=== PATIENT | female | born 1955 | race Caucasian/White ===

== ENCOUNTER 2017-10-27 16:09 | Emergency (ER) | payer OTHER ==
[2017-10-27 16:18] VITALS: BP 138/88
[2017-10-27] MEDS ORDERED: Lidocaine 1%* 5 ML VIAL INJ ONE (16:58)
--- NOTE | 2017-10-27 16:59 | UC ---
Laceration HPI - HPI Summary HPI Summary: This is scribe Chely Hay documenting for attending Ebony Chand MD. This patient is a 62 year old F presenting to [facility] [address] with a chief complaint of laceration on left third finger with an embroidery needle that occurred ROUSTABOUT CREW. The patient rates the pain 4/10 in severity. Symptoms aggravated by nothing. Symptoms alleviated by nothing. Pt reports that she was sewing with a machine, and the needle went all the through the finger. Pt is dominant R handed. Tdapp UTD. Not immunocompromised. No analgesia taken. RHD. Medications reviewed this visit. - History Of Current Complaint Chief Complaint: UCLaceration Stated Complaint: PUNCTURE WOUND Time Seen by Provider: 10/27/17 16:28 Hx Obtained From: Patient Hx Last Menstrual Period: na Laceration Location: Finger Mechanism Of Injury: Sharp Trauma Onset/Duration: Sudden Onset, Lasting Hours, Still Present Severity: Moderate Pain Intensity: 4 Pain Scale Used: 0-10 Numeric Aggravating Factors: Nothing Related History: Dominant Hand Right - Allergies/Home Medications Allergies/Adverse Reactions: Allergies Allergy/AdvReac Type Severity Reaction Status Date / Time SEASONAL HAYFEVER Allergy SNEEZE, Uncoded 10/27/17 16:20 ITCHY EYES PMH/Surg Hx/FS Hx/Imm Hx Previously Healthy: Yes Endocrine History: Other Other Endocrine History: Negative diabetes Cardiovascular History: Other Other Cardiovascular History: Negative HTN - Surgical History Surgical History: Yes Surgery Procedure, Year, and Place: 1973 PILIONIDAL SINUS SURGERY, [facility] - Family History Known Family History: Positive: Other - Negative breast CA - Social History Occupation: Employed Full-time Lives: Alone Alcohol Use: Occasionally Alcohol Amount: 1 EVERY OTHER WEEK Substance Use Type: None Smoking Status (MU): Never Smoked Tobacco Review of Systems Skin: Other - Positive laceration on left third finger Cardiovascular: Other - Negative CP All Other Systems Reviewed And Are Negative: Yes Physical Exam - Summary Physical Exam Summary: Vital Signs Reviewed: Yes A+Ox3, no distress Eyes: Conjunctiva Clear ENT: Hearing grossly normal neck: supple Respiratory: Positive: No respiratory distress, No accessory muscle use Cardiovascular: skin color reflect adequate perfusion Musculoskeletal Exam: CHANDLER x 4 without difficulty Neurological: Positive: Alert, ambulatory without difficulty Psychological: Positive: Normal Response To Family Skin: Positive: laceration to left middle finger, dorsal aspect, distal phalyns , no nail involvement 1cm no rash, no ecchymosis Triage Information Reviewed: Yes Vital Signs: Initial Vital Signs Temp 99.3 F 10/27/17 16:14 Pulse 75 10/27/17 16:14 Resp 18 10/27/17 16:14 BP 138/88 10/27/17 16:14 Pulse Ox 100 10/27/17 16:14 Laceration Repair - Laceration Repair 1 Procedure Summary: verbal permission to treat time out completed with RN at bedside pt prepped in usual, sterile fashion copious irrigation with sterile saline under pressure pt tolerated well wound with good approximation reviewed with pt wound care s/s infection return precautions Description: Linear Laceration Size After Repair: Length (cm) - 1.5 Modified For Repair: No Type Injection: Local Anesthesia Used: 1.0% Lido - 1.5 mL Cleansing Completed Via Routine Prep: Yes Closure Material: Sutures - 2 Closure Method: Single Layer - 2 sutures, simple interrupted Suture Of: Skin Suture Type: Nylon - 5-0 Laceration Course/Dx - Course/Dx Course Of Treatment: laceration - suture with good approx. reviewed wound care. s/s infection. return precautions. suture removal. motrin/apap - Differential Dx - Laceration/Wound Provider Diagnoses: left middle finger laceration Discharge - Sign-Out/Discharge Documenting (check all that apply): Patient Departure - Discharge home - Discharge Plan Condition: Stable Disposition: HOME Patient Education Materials: Finger Laceration (ED) Referrals: Ada Martinez MD [Primary Care Provider] - Additional Instructions: - your stitches should come out in 8-10 days - you can return here, go to your Doctor or any urgent care center - okay to alternate ibuprofin (advil, motrin) and tylenol every 3hours as needed for pain -Anticipate increased discomfort over the next several hours as the numbing medication wears off -Keep your wound clean and dry - no soaking for 24 hours. Then, okay for wound to get wet - pat dry, don't rub -apply a thin layer of antibiotic ointment (neosporin, polysporin) 2-3 times a day - keep your wound clean - monitor for signs of infection - reddness, red streaking, odor, green drainage - Contact your doctor or return here with questions or concerns - Billing Disposition and Condition Condition: STABLE Disposition: Home
== END 2017-10-27 17:30 | disposition home or self-care (01) ==
LOC: UCEAST 16:09
DX: S61.213A Laceration without foreign body of left middle finger without damage to nail, initial encounter (principal); Z91.09 Other allergy status, other than to drugs and biological substances; W26.8XXA Contact with other sharp object(s), not elsewhere classified, initial encounter; Y92.9 Unspecified place or not applicable
CPT/HCPCS: 12001; 99212; G0463

== ENCOUNTER → 2019-02-20 05:33 | Day surgery (SDC) | payer OTHER ==
--- NOTE | 2019-02-09 12:22 | HP ---
AMENDED REPORT NOW INCLUDES DESIGNATED COSIGNER HISTORY AND PHYSICAL: DATE OF ADMISSION/SURGERY: 02/20/19 DATE OF OFFICE VISIT: 02/05/19 SURGEON: Katlin Cornejo MD * (DICTATED BY JOY DIAZ) PROCEDURE: Right knee arthroscopy with partial meniscectomy, possible chondroplasty, possible synovectomy, and possible plica excision. CHIEF COMPLAINT: Right knee pain. HISTORY OF PRESENT ILLNESS: Mrs. Webber is a 63-year-old female with complaint of right knee pain. She has elected to procedure with right knee arthroscopy. PAST MEDICAL HISTORY: Heart murmur. PAST SURGICAL HISTORY: Pilonidal cyst removal, right foot surgery, and cataract removal. CURRENT MEDICATIONS: 1. Allergy medication. 2. Calcium. 3. Vitamin D. 4. Vitamin B12. 5. AREDS 2. 6. Biotin. ALLERGIES: No known drug allergies. FAMILY HISTORY: Colon cancer. SOCIAL HISTORY: She is 63-year-old female, she lives with her son. She does not smoke or use drugs. REVIEW OF SYSTEMS: A complete 14-point review of systems was reviewed with the patient. It is all negative and noncontributory. She denies history of DVT, PE , hepatitis, HIV, or anesthesia problems. PHYSICAL EXAMINATION GENERAL: She is well developed, well nourished, in no acute distress. VITAL SIGNS: She stands 70 inches tall, weighs 197 pounds, blood pressure is 126/82, heart rate is 85. HEENT: Normocephalic, atraumatic. NECK: Supple. No palpable lymph nodes. PULMONARY: The lungs are clear to auscultation bilaterally. CARDIO: Regular rate and rhythm. Strong S1, S2. ABDOMEN: Soft, nontender, nondistended. NEUROLOGICAL: She is alert and oriented x3. MUSCULOSKELETAL: Right lower extremity: The skin is intact. There are no open wounds or abrasions. There is [id number] effusion of the right knee joint. She has some tenderness over the medial and lateral joint line. Range of motion is 5 to 120 degrees of flexion. Positive Apley's and Dwain's. She has 2+ dorsalis pedis pulse, intact sensation. Her lower muscle group strengths are intact at 5/5. ASSESSMENT AND PLAN: Mrs. Gant is a 63-year-old female with complaints of right knee pain and MRI shows a significant medial plica and synovitis as well as a lateral meniscus tear. She has elected to proceed with a right knee arthroscopy with partial meniscectomy, possible chondroplasty, possible synovectomy, and possible plica excision. The surgery is scheduled for by Dr. Cornejo. Risks and benefits of the surgery were discussed at today's visit and all of her questions were answered. She will follow up with Dr. Cornejo 2 weeks after the surgery. JOY DIAZ [id number]/[facility] #: [id number] RIGOBERTO
[~2019-02-20 05:33] MED LIST: Buffered Lidocaine 1% SYRIN* 1 ML/SYRINGE INTRADERM ONE; Chloroprocaine 2%* 20 ML VIAL ONE; Dexamethasone IV* 4 MG/ML 1 ML (4 MG) IV SLOW PU ONE; Dexamethasone IV* 4 MG/ML 1 ML (4 MG) ONE; DiMENhydriNATE IV* 50 MG/ML VIAL IV PUSH PRN; EPINEPHRINE 1 MG/ML 1 ML VIAL ONE; Famotidine IV* 10 MG/ML 2 ML (20 mg) IV ONE; Famotidine IV* 10 MG/ML 2 ML (20 mg) ONE; Ketorolac INJ* 30 MG/ML 1 ML VIAL ONE; Lactated Ringers 1000 ML Bag* 1,000 ML IV SCH; Midazolam* 1 MG/ML 2 ML VIAL (2 MG) ONE; Naloxone* 0.4 MG/ML 1 ML VIAL IV PRN; Ondansetron INJ* 2 MG/ML VIAL IV PRN; Ondansetron INJ* 2 MG/ML VIAL ONE; Propofol* 10 MG/ML 20 ML BTL ONE; ROPIVACAINE 5 MG/ML 30 ML BTL (0.5%) ONE; Ropivacaine 0.2% * 2 MG/ML VIAL ONE; Scopolamine 1.5 mg* PATCH TRANSDERM PRN; ceFAZolin 2 GM in NS PREMIX(*) 2 GM/100 ML BAG IVPB ONE; fentaNYL* 50 MCG/ML 2 ML VIAL (100 MCG VIAL) IV PRN; methylPREDNISolone ACETATE 80* 80 MG/ML 1 ML VIAL ONE; oxyCODONE/Acetamin 5/325 MG* TAB PO PRN
[2019-02-20 10:17] VITALS: BP 138/86
--- NOTE | 2019-02-20 22:53 | OP ---
DATE OF OPERATION: 02/20/19 - [facility] DATE OF : 55 SURGEON: Katlin Cornejo MD LIGHTING ENGINEER: JOY Springer. Ms. Helton did help throughout the procedure with preparation of the leg, wound retraction, manipulation of the knee, and wound closure. ANESTHESIOLOGIST: Dr. Michael ANESTHESIA: Spinal. PRE-OP DIAGNOSIS: Right knee lateral meniscal tear and synovitis. POST-OP DIAGNOSIS: Right knee medial and lateral meniscal tear, anterior synovitis, [id number] degenerative osteoarthritis. OPERATIVE PROCEDURE: Right knee arthroscopy with partial medial meniscectomy, partial lateral meniscectomy, anterior synovectomy. COMPLICATIONS: None. SPECIMEN: None. ESTIMATED BLOOD LOSS: Less than 25 cc. BRIEF HISTORY/INDICATIONS: Ms. Webber is a 63-year-old female who developed the acute onset of mechanical symptoms in her knee joint. She failed conservative treatment and continued to have pain and decreased quality of life. MRI confirmed a lateral meniscal tear. She elected to undergo right knee arthroscopy with partial meniscectomy. MRI also showed synovitis and she understood she could have possible synovectomy. Informed consent was obtained from the patient. She understood the risks of surgery included, but were not limited to bleeding, infection, damage to nearby structures, continued pain, need for further surgery, intraoperative fracture, nerve palsy, re-tear of the meniscus, progression of arthritis, stroke, heart attack, blood clot and . She wished to proceed. INTRAOPERATIVE FINDINGS: Intraoperatively, the patient was noted to have a linear tear of the posterior third of the medial meniscus in the red-white zone. She had anterior radial type tear of the lateral meniscus. She had significant amount of the anterior synovitis. She had grade 3 and 4 Outerbridge cartilage change in the patellofemoral and lateral compartment. DESCRIPTION OF PROCEDURE: Ms. Webber was identified in the preanesthesia unit. Her right lower extremity was marked as the correct operative site. Informed consent was signed and placed in the chart. The patient was taken to the operating room and placed under spinal anesthesia. Right lower extremity was prepped and draped in the usual sterile fashion. Preoperative time-out was made to correctly identify the patient, side and site. Appropriate perioperative antibiotics were given within 1 hour of incision. A standard anterolateral portal incision 1.5 cm was made with a 10-blade and carried down to the capsule. Trocar was introduced. As soon as the light and water source were turned on, there was immediate visualization of the suprapatellar pouch. A tour of the knee joint was performed. Suprapatellar pouch had no obvious abnormality. Patellofemoral compartment had some exposed subchondral bone with grade 3 and 4 Outerbridge cartilage changes. Medial gutters showed no loose body or plica. Anterior joint line had significant synovitis. Medial compartment showed some minimal degenerative changes. Posterior medial meniscus showed a tear with some anterior displacement of the meniscus. ACL and PCL appeared to be intact. The knee was placed in a figure- of-four position. There was a radial tear of the anterior horn of the lateral meniscus. There was exposed subchondral bone along the majority of the tibial plateau, grade 3 and 4 Outerbridge cartilage changes. Under direct visualization, a medial portal incision was made. A probe was introduced and a second tour of the knee joint was performed. Radiofrequency ablation wand and shaver were used to perform the anterior synovectomy. Next, the straight biter and shaver were used to perform partial medial meniscectomy. This is a linear tear of the white-red zone of the posterior one-third of the medial meniscus. This linear tear was carefully excised using straight biter and shaver. A smooth border of the meniscus was obtained. Further probing of the meniscus showed no additional tears. Radiofrequency ablation wand was used to further smooth the edge of the meniscus. The knee was placed in a [id number] position. Shaver was introduced and used to performed partial lateral meniscectomy. The radial tear was carefully excised. A smooth border of the lateral meniscus was obtained. Further probing of the meniscus showed no additional tears. The knee was copiously irrigated with sterile saline. All instruments were removed. The incisions were closed using 3-0 nylon suture. Sterile Xeroform, 4x4s, and Webril were used to cover the incision. Zack wrap and cold pack were placed over this. The patient's anesthesia was reversed without difficulty. She was taken to the PACU unit in stable condition. Intended weightbearing will be weightbearing as tolerated. Intended DVT prophylaxis will be aspirin. She will follow up in 2 weeks' time for suture removal. [id number]/[facility] #: [id number] [facility]
== END | disposition home or self-care (01) ==
LOC: OR 05:33
PROVIDERS: ATTEND Orthopaedic Surgery Adult Reconstructive Orthopaedic Surgery
DX: S83.241A Other tear of medial meniscus, current injury, right knee, initial encounter (principal); S83.281A Other tear of lateral meniscus, current injury, right knee, initial encounter; X58.XXXA Exposure to other specified factors, initial encounter; Y92.9 Unspecified place or not applicable; M17.11 Unilateral primary osteoarthritis, right knee; M65.861 Other synovitis and tenosynovitis, right lower leg
CPT/HCPCS: J0690; J1040; J1100; J1885; J2250; J2400; J2405; J2704; J2795